=== PATIENT | male | born 1935 | race Caucasian/White ===

== ENCOUNTER 2017-05-18 23:15 | Observation (INO) | payer OTHER ==
[~2017-05-18] VITALS: Ht 172.7 cm; Wt 72.5 kg
[~2017-05-18 23:15] MED LIST: AMLODIPINE BESYL5 MG PO; ASPIR 8181 M1 PO; ATORVASTATIN CA40 MG PO; CLOPIDOGREL75 MG PO; EYE DROP FOR GLAUCOM; HYDROCHLOROTHIA25 MG PO; LOPRESSOR25 MG PO; NAPROSYN375 MG PO; NEXIUM40 MG PO; PRAVACHOL80 MG PO; TIMOLOL MALEATE5 M1 BOTH EYES
[2017-05-19 00:01] LABS: BASOPHIL COUNT 0.1 K/uL (0-0.1); EOSINOPHIL (%) 2.8 % (0-5); EOSINOPHIL COUNT 0.2 K/uL (0-0.3); HEMATOCRIT 39.6 % (38.0-50.0); IMMATURE GRANULOCYTE (%) 0.4 % (0.0-0.7); INSTRUMENT ABS NEUTROPHIL CT 5.7 K/uL; LYMPHOCYTE COUNT 1.1 K/uL (1.0-2.8); MCH 30.3 PG (29.0-34.0); MCHC 33.3 G/DL (30.0-36.0); MCV 90.8 FL (86-99); MEAN PLAT.VOLUME 9.5 uM^3 (9.0-12.4); MONOCYTE (%) 8.8 % (3-12); MONOCYTE COUNT 0.7 K/uL (0-0.8); NEUTROPHIL (%) 72.9 % (45-76); NEUTROPHIL COUNT 5.7 K/uL (1.8-6.4); PLATELET COUNT 166 K/uL (156-360); RBC DIS.WIDTH-CV 14.1 % (11.8-14.6); RBC DIS.WIDTH-SD 47.8 % (39-53); RED BLOOD COUNT 4.36 M/uL (4.00-5.50); WHITE BLOOD COUNT 7.9 K/uL (4.1-10.2)
[2017-05-19 00:13] LABS: CHLORIDE 102 mEq/L (99-109); POTASSIUM 3.7 mEq/L (3.7-5.4); SODIUM 137 mEq/L (136-147)
[2017-05-19 00:14] LABS: MAGNESIUM 2.1 mg/dL (1.3-2.7)
[2017-05-19 00:16] LABS: GLUCOSE 142 mg/dL (70-99)
[2017-05-19 00:17] LABS: ANION GAP 8 MEQ/L (2-14); TOTAL BILIRUBIN 0.4 mg/dL (0.0-1.0)
[2017-05-19 00:19] LABS: ALKALINE PHOSPHATASE 67 IU/L (3-129); GFR ESTIMATE (CALCULATED) > 59 mL/min/
[2017-05-19 00:20] LABS: UREA NITROGEN (BUN) 19 mg/dL (9-23)
[2017-05-19 00:28] LABS: TROP-I INTERPRETATION NEGATIVE; TROPONIN-I < 0.01 ng/mL (0.0-0.30)
[2017-05-19 04:09] VITALS: BP 146/82
[2017-05-19 06:16] LABS: TROP-I INTERPRETATION NEGATIVE; TROPONIN-I < 0.01 ng/mL (0.0-0.30)
[2017-05-19 09:30] VITALS: BP 175/74
[2017-05-19 11:29] VITALS: BP 118/57
[2017-05-19] MEDS ORDERED: PRAVACHOL80 MG PO (12:35)
[2017-05-19] MEDS ORDERED: OMEPRAZOLE40 M1 PO (12:36)
[2017-05-19] MEDS ORDERED: KENALOG,ARISTOC80 G1 TP (12:37)
[2017-05-19] MEDS ORDERED: XALATAN2.5 ML BOTH EYES (12:37)
[2017-05-19] MEDS ORDERED: KENLAOG,ARISTOC60 ML TP (12:37)
[2017-05-19] MEDS ORDERED: CORTISONE57 GM TP (12:38)
[2017-05-19] MEDS ORDERED: NORVASC2.5 MG PO (12:38)
[2017-05-19] MEDS ORDERED: CALCIUM 500 MG1 EACH PO (12:39)
[2017-05-19] MEDS ORDERED: BACTROBAN NASAL1 G1 BOTH NARES (12:39)
[2017-05-19 12:47] LABS: TROP-I INTERPRETATION NEGATIVE; TROPONIN-I < 0.01 ng/mL (0.0-0.30)
== END 2017-05-19 15:31 | disposition home or self-care (01) ==
LOC: EME 23:15 → ENPENDDIS 05-19 → EDOF 05-19 02:39 → 5WEST 05-19 02:39 → ENRESERV 05-19 02:40 → 5WEST 05-19 03:38
PROVIDERS: Emergency Medicine; Hospitalist
DX: R00.1 Bradycardia, unspecified (principal); R42 Dizziness and giddiness; H40.9 Unspecified glaucoma; R55 Syncope and collapse; I25.10 Atherosclerotic heart disease of native coronary artery without angina pectoris; Z95.5 Presence of coronary angioplasty implant and graft; I10 Essential (primary) hypertension; E78.5 Hyperlipidemia, unspecified; K21.9 Gastro-esophageal reflux disease without esophagitis; Z88.8 Allergy status to other drugs, medicaments and biological substances; Z82.49 Family history of ischemic heart disease and other diseases of the circulatory system; Z83.3 Family history of diabetes mellitus; Z83.79 Family history of other diseases of the digestive system
CPT/HCPCS: 80053; 83735; 84484; 85025; 93005; 99281; 99285; G0378; J1650; J7030